=== PATIENT | female | born 1960 | race Caucasian/White ===

== ENCOUNTER 2020-11-15 11:26 | Emergency (ER) | payer SELFPAY ==
[2020-11-15 14:30] LABS: #Eosinphils 0.1 thou/uL (0.0-0.7); #Lymphocytes 1.3 thou/uL (1.20-3.40); #Monocytes 0.6 thou/uL (0.11-0.59); #Neutrophils 4.1 thou/uL (1.40-6.50); %Basophils 0.7 % (0.0-1.0); %Eosinophils 0.9 % (0.0-10.0); %Lymphocytes 21.7 % (21.0-51.0); %Monocytes 10.2 % (0.0-10.0); %Neutrophils 66.5 % (42.0-75.0); Hemoglobin 17.7 g/dL (12.0-16.0); Mean Corpuscular HGB CONC 34.6 g/dL (32.0-36.0); Mean Corpuscular Hemoglobin 37.4 pg (27.0-31.0); Mean Platelet Volume 8.1 fL (7.4-10.4); Platelet Count 158 thou/uL (130-400); RBC Distribution Width 10.8 % (11.5-14.5); Red Blood Cell (RBC) Count 4.73 mill/uL (4.20-5.40); White Blood Cell (WBC) Count 6.2 thou/uL (4.8-10.8)
[2020-11-15 14:45] LABS: MDiff Complete? YES; Macrocytosis SLIGHT = 6-15 cells (100X) (0-5/hpf); Platelet Morphology Comment Appears Adequate
[2020-11-15 14:54] LABS: ALT (SGPT) 66 U/L (8-55); AST (SGOT) 92 U/L (5-34); Albumin 4.1 g/dL (3.4-4.8); Alkaline Phosphatase 148 U/L (40-110); Anion Gap 13 mmol/L (10-20); BUN (Urea Nitrogen) 10 mg/dL (9.8-20.1); Bilirubin, Total 0.5 mg/dL (0.2-1.2); Calc. Creatinine Clearance 0 mL/min (70-130); Calcium 9.6 mg/dL (7.8-10.44); Carbon Dioxide 23 mmol/L (23-31); Chloride 104 mmol/L (98-107); Globulin 4.9 g/dL (2.4-3.5); Glucose 88 mg/dL (80-115); Potassium 4.7 mmol/L (3.5-5.1); Sodium 135 mmol/L (136-145)
[2020-11-16 12:13] LABS: ANA Symphony (Qualitative) Equivocal: See Note (Negative); ANA Symphony (Quantitative) 0.8 Ratio (< 0.7 Negative); dsDNA IgG Antibody 1.7 IU/mL (<10 Negative)
== END 2020-11-15 15:20 | disposition home or self-care (01) ==
LOC: ERS 11:26
DX: M34.9 Systemic sclerosis, unspecified (principal); J44.9 Chronic obstructive pulmonary disease, unspecified; I10 Essential (primary) hypertension; Z86.73 Personal history of transient ischemic attack (TIA), and cerebral infarction without residual deficits; F17.210 Nicotine dependence, cigarettes, uncomplicated; Z79.899 Other long term (current) drug therapy; Z86.19 Personal history of other infectious and parasitic diseases
CPT/HCPCS: 36415; 71046; 80053; 84443; 85025; 86038; 86225

== ENCOUNTER 2021-10-04 13:00 | Emergency (ER) | payer OTHER, SELFPAY ==
[2021-10-04] MEDS ORDERED: Lidocaine 1% (PF) 30 ML VIAL ONE (14:35)
[2021-10-04] MEDS ORDERED: Xylocaine 1% w/ Epi 1:100K 10 ML VIAL ONE (14:36)
[2021-10-04] MEDS ORDERED: Boostrix 0.5 ML (Tdap) VIAL ONE (15:14)
== END 2021-10-04 15:36 | disposition home or self-care (01) ==
LOC: ERS 13:00
DX: L02.211 Cutaneous abscess of abdominal wall (principal); I10 Essential (primary) hypertension; J44.9 Chronic obstructive pulmonary disease, unspecified; F17.210 Nicotine dependence, cigarettes, uncomplicated; Z86.73 Personal history of transient ischemic attack (TIA), and cerebral infarction without residual deficits
CPT/HCPCS: 10060; 90471; 90715; J2001

== ENCOUNTER 2021-10-06 09:37 | Emergency (ER) | payer SELFPAY | END 2021-10-06 10:35 | disposition home or self-care (01) | LOC: ERS 09:37 | DX: L02.211 Cutaneous abscess of abdominal wall (principal); Z76.0 Encounter for issue of repeat prescription; I10 Essential (primary) hypertension; J44.9 Chronic obstructive pulmonary disease, unspecified; F17.210 Nicotine dependence, cigarettes, uncomplicated | CPT/HCPCS: 99282 ==

== ENCOUNTER 2023-03-19 13:37 | Outpatient (CLI) | payer OTHER | END 2023-03-19 13:38 | disposition home or self-care (01) | LOC: RAD 13:37 | PROVIDERS: ATTEND Internal Medicine | DX: R06.00 Dyspnea, unspecified (principal) | CPT/HCPCS: 71046 ==

== ENCOUNTER 2023-04-10 09:43 | Outpatient (CLI) | payer OTHER | END 2023-04-10 09:44 | disposition home or self-care (01) | LOC: BICMAMMO 09:43 | PROVIDERS: ATTEND Student in an Organized Health Care Education/Training Program | DX: Z12.31 Encounter for screening mammogram for malignant neoplasm of breast (principal) | CPT/HCPCS: 77067 ==

== ENCOUNTER 2024-04-16 08:50 | Outpatient (CLI) | payer MEDICARE, MEDICAID | END 2024-04-16 08:51 | disposition home or self-care (01) | LOC: MRI 08:50 | PROVIDERS: ATTEND Physician Assistant Medical | DX: R93.2 Abnormal findings on diagnostic imaging of liver and biliary tract (principal); R74.8 Abnormal levels of other serum enzymes; B18.2 Chronic viral hepatitis C; K66.8 Other specified disorders of peritoneum; K83.9 Disease of biliary tract, unspecified; D25.9 Leiomyoma of uterus, unspecified; K74.60 Unspecified cirrhosis of liver | CPT/HCPCS: 74183; 76376 ==

== ENCOUNTER 2024-06-24 11:32 | Outpatient (CLI) | payer MEDICARE, MEDICAID | END 2024-06-24 11:33 | disposition home or self-care (01) | LOC: BICMAMMO 11:32 | PROVIDERS: ATTEND Student in an Organized Health Care Education/Training Program | DX: Z12.31 Encounter for screening mammogram for malignant neoplasm of breast (principal) | CPT/HCPCS: 77063; 77067 ==

== ENCOUNTER 2024-08-13 09:08 | Outpatient (CLI) | payer MEDICARE, MEDICAID | END 2024-08-13 09:09 | disposition home or self-care (01) | LOC: CT 09:08 | PROVIDERS: ATTEND Student in an Organized Health Care Education/Training Program | DX: R91.1 Solitary pulmonary nodule (principal) | CPT/HCPCS: 71250 ==

== ENCOUNTER 2025-01-18 09:42 | Outpatient (CLI) | payer MEDICARE, MEDICAID ==
[2025-01-19 08:32] LABS: Estimated GFR - POC 81.0
== END 2025-01-18 09:43 | disposition home or self-care (01) ==
LOC: MRI 09:42
PROVIDERS: ATTEND Physician Assistant Medical
DX: Z12.11 Encounter for screening for malignant neoplasm of colon (principal); K74.60 Unspecified cirrhosis of liver; B18.2 Chronic viral hepatitis C; R16.0 Hepatomegaly, not elsewhere classified
CPT/HCPCS: 36415; 74183; 82565

== ENCOUNTER 2025-03-10 08:45 | Outpatient (CLI) | payer MEDICARE, MEDICAID | END 2025-03-10 08:46 | disposition home or self-care (01) | LOC: BICCT 08:45 | PROVIDERS: ATTEND Internal Medicine | DX: R91.1 Solitary pulmonary nodule (principal) | CPT/HCPCS: 71250 ==